=== PATIENT | female | born 1970 | race Caucasian/White ===

== ENCOUNTER 2019-12-25 21:18 | Emergency (ER) | payer OTHER, SELFPAY ==
[~2019-12-25] VITALS: Ht 162.6 cm; Wt 86.2 kg
[2019-12-25 21:29] VITALS: Ht 162.6 cm; Wt 86.2 kg
[2019-12-25 22:19] VITALS: BP 122/78
== END 2019-12-25 22:19 | disposition home or self-care (01) ==
LOC: ED 21:18
DX: J02.8 Acute pharyngitis due to other specified organisms (principal); Z20.828 Contact with and (suspected) exposure to other viral communicable diseases; Z88.8 Allergy status to other drugs, medicaments and biological substances
CPT/HCPCS: U0003-CS